=== PATIENT | female | born 1985 | race Caucasian/White ===

== ENCOUNTER 2024-04-04 11:12 | Outpatient (CLI) | payer OTHER, SELFPAY ==
[2024-04-04 18:23] LABS: Chlamydia DNA Amplified* NOT DETECTED (No Detected); GC DNA Amplified* NOT DETECTED (No Detected)
== END 2024-04-04 11:13 | disposition home or self-care (01) ==
PROVIDERS: Visit Provider Registered Nurse
DX: Z34.92 Encounter for supervision of normal pregnancy, unspecified, second trimester (principal); Z3A.16 16 weeks gestation of pregnancy
CPT/HCPCS: 81220; 86592; 86703; 86704; 86706; 86762; 86787; 86803; 86850; 86900; 86901; 87086; 87340; 87491; 87591

== ENCOUNTER 2024-07-01 14:18 | Outpatient (CLI) | payer OTHER, SELFPAY | END 2024-07-01 14:19 | disposition home or self-care (01) | LOC: NFLDREF 07-05 18:11 | PROVIDERS: Visit Provider Obstetrics & Gynecology | DX: Z34.93 Encounter for supervision of normal pregnancy, unspecified, third trimester (principal); Z3A.29 29 weeks gestation of pregnancy | CPT/HCPCS: 86592 ==

== ENCOUNTER 2024-07-09 08:10 | Outpatient (CLI) | payer OTHER, SELFPAY | END 2024-07-09 08:11 | disposition home or self-care (01) | LOC: NFLDREF 10:39 | PROVIDERS: Visit Provider Obstetrics & Gynecology | DX: R73.09 Other abnormal glucose (principal) | CPT/HCPCS: 82951; 82952 ==

== ENCOUNTER 2024-08-22 14:48 | Outpatient (CLI) | payer BC, SELFPAY ==
[2024-08-23 12:55] LABS: Strep B DNA Probe POSITIVE (Negative)
[2024-08-23 13:04] LABS: Strep B Susceptibility Needed? No
== END 2024-08-22 14:49 | disposition home or self-care (01) ==
LOC: NFLDREF 14:49
PROVIDERS: Visit Provider Obstetrics & Gynecology
DX: O09.523 Supervision of elderly multigravida, third trimester (principal); Z3A.36 36 weeks gestation of pregnancy
CPT/HCPCS: 87081; 87653

== ENCOUNTER 2024-09-12 11:17 | Outpatient (CLI) | payer BC, SELFPAY | END 2024-09-12 11:18 | disposition home or self-care (01) | LOC: US 11:18 | PROVIDERS: Visit Provider Obstetrics & Gynecology | DX: O36.5930 Maternal care for other known or suspected poor fetal growth, third trimester, not applicable or unspecified (principal); Z3A.39 39 weeks gestation of pregnancy | CPT/HCPCS: 76816; 76819 ==

== ENCOUNTER 2024-09-21 16:36 | Inpatient (IN) | payer BC, SELFPAY ==
[2024-09-21 16:47] VITALS: BP 122/72; PULSE 85; RESP 16; TEMP 36.7
[2024-09-21 16:51] VITALS: BMI 26.6
--- NOTE | 2024-09-21 16:54 | P.LDBA_ITS ---
Subjective History of Present Illness Date Seen: 09/21/24 Narrative: Patient is being admitted to Labor and Delivery for postdates IOL. She is a 38 year old woman at 40 weeks, 6 days gestation. Her full history and physical was dictated by Dr. Tracy on 08/28/2024. Please see this for details. Specific Issues/Plans G 1 H&P by CGM on 08/28/24 # Transfer of care at 16 weeks from [place]. Majority of records in [place]. New OB labs repeated. # Advanced maternal age NIPT: negative Recommend daily baby aspirin. To start now due to advanced maternal age and primip. Level 2 ultrasound normal as below # Heartburn. Recommended trial of Tums. If that does not helpful, recommend famotidine. Prescription submitted to her pharmacy. # Patient has a travel VISA which requires [place] to leave the country and re- enter every 90 days. They have concerns with traveling late in and with an infant. The patient will notify us if we need to provide any documentation regarding her or recommendations related to air travel at the end of . # Rubella nonimmune. Recommend vaccine. #Indeterminate Hep B surface antibody. No elevated risk of exposure. 2nd dose vaccine planned in third trimester # Elevated 1 hr GTT = 204. 3 hr GTT with 1 / 4 values elevated; no diabetes # GBS positive. No antibiotic allergies. Ampicillin during labor. Flu: 04/05/24 obtained at [facility] Covid: 04/05/24 obtained at [facility] RSV: 1/3 TDAP: done for immigration on 06/09/24 32 week VIOLETA-7 = 11, PHQ-9 = 9 NIPT: negative CF screen neg Ultrasound: 02/29/24: Gestational age 11 4/7 weeks. IUP. FHR 156bpm. Placenta posterior low. ANTOINE by dates: 09/15/24, ANTOINE by scan: 09/15/23 04/28/24: Level 2 US. posterior placenta without previa, 3 vessel cord, normal fluid, EFW 66%, AC 65%, normal anatomy. OB - Problem Based A/P Additional Plan (1) GBS (group B Streptococcus carrier), +RV culture, currently : Status: Acute (2) Post-dates : Status: Acute Plan Using aseptic technique, Cook catheter placed through the cervix. Intracervical in intravaginal balloons will be inflated up to 60 mL each, titrated to patient comfort. Begin low-dose Pitocin at 9:00 p.m.. Begin ampicillin for GBS prophylaxis now. Catheter will be removed after 12 hours. Delivery/Labor/Induction Plan Induction method: Intracervical balloon catheter OB Exam Physical Exam Vital signs: Pulse BP 85 122/72 09/21/24 16:47 09/21/24 16:47 Narrative: Physical exam: General: No acute distress Psych: Alert and oriented x3, full affect HEENT: Normocephalic, atraumatic Heart: Regular rate and rhythm, no murmur rub or gallop Lungs: Clear to auscultation bilaterally Abdomen: Soft, nontender, gravid, cephalic lie Lower extremities: Trace bilateral edema, no erythema Pelvic exam: Cervix 1.5, 70,-1, posterior, soft tracing:baseline 120 / accelerations present / no decelerations / moderate variability
[2024-09-21 17:54] LABS: Basophils Absolute Auto 0.01 K/uL (0.00-0.30); Basophils Percent Auto 0.1 % (0.0-3.0); Eosinophils Percent Auto 1.2 % (0.0-7.0); Hemoglobin* 12.9 gm/dL (12.0-16.0); Immature Granulocytes Abs Auto 0.02 K/uL (0.00-0.30); Immature Granulocytes Pct Auto 0.2 %; Lymphocytes Percent Auto 16.3 % (20-44); Mean Corpuscular HGB Conc 34 gm/dL (32-36); Mean Corpuscular Hemoglobin 31 pg (26-34); Mean Corpuscular Volume 92 fL (80-100); Monocytes Percent Auto 6.9 % (0.0-11.0); Neutrophils Percent Auto 75.3 % (42.0-72.0); Platelet Count* 169 K/uL (140-440); RDW Coefficient of Variation % 13.4 % (11.5-15.5); Red Blood Count 4.12 m/uL (4.00-5.20); White Blood Count* 8.46 K/uL (4.50-11.00)
[2024-09-21 17:57] LABS: Slide Review Reflex No
[2024-09-21] MEDS: LACTATED RINGERS 1000 ML 1,000 ML 125 ML IV (18:11)
[2024-09-21] MEDS: AMPICILLIN 2 GM in 0.9 % SODIUM CHLORIDE Mini-bag 100 ML IVPB (18:12)
[2024-09-21 19:40] VITALS: BP 110/56; PULSE 75; RESP 16; TEMP 37.1; O2SAT 97
[2024-09-21] MEDS: OXYTOCIN 30 unit/500 ML in NS 30 UNIT/500 ML BAG IVPB (21:00)
[2024-09-21] MEDS: AMPICILLIN 1 GM in 0.9 % SODIUM CHLORIDE Mini-bag 100 ML IVPB (21:03)
[2024-09-21] MEDS: hydrOXYzine pamoate 25 MG CAPSULE 100 MG PO (21:45)
[2024-09-21] MEDS: MORPHINE 10 MG/ML inj IM (21:45)
[2024-09-21 23:08] VITALS: BP 101/53; PULSE 67; RESP 16; TEMP 37.3
[2024-09-21 23:09] VITALS: PULSE 72; O2SAT 96
[2024-09-22] VITALS (90 sets, daily range): BP systolic 92–143; BP diastolic 50–70; PULSE 66–164; RESP 16–17; TEMP 36.7–37.3; O2SAT 83–100
[2024-09-22] MEDS: AMPICILLIN 1 GM in 0.9 % SODIUM CHLORIDE Mini-bag 100 ML IVPB ×2 (01:50→05:48)
[2024-09-22] MEDS: LACTATED RINGERS 1000 ML 1,000 ML 125 ML IV ×2 (02:03→07:19)
[2024-09-22] MEDS: ROPIVACAINE 0.2% 100 ml 100 ML 12 MG EPIDURAL (06:00)
[2024-09-22] MEDS: LIDOCAINE 2% (PF) 5 ML VIAL EPIDURAL (06:00)
--- NOTE | 2024-09-22 06:28 | PM.ANBPRC ---
[facility] Social History Narrative: From [place]. Living with in [place]. What is your current living situation?: I presently have a place to live Problems where you live: no known problems In the past 12 months, utilities in danger of being shut off: no In past 12 months, lack of transportation kept you from medical appts, meetings, work, or getting things needed for daily living: no In the past 12 mos, have been you worried that your food would run out before you had money to buy more?: never true In the past 12 mos, the food you bought just didn't last and you didn't have money to buy more?: never true Smoking Status: Never smoker How often does anyone, including family, friends and others, physically hurt you: never How often does anyone, including family, friends and others, insult or talk down to you: never How often does anyone, including family, friends and others, threaten you with harm: never How often does anyone, including family, friends and others, scream or curse at you: never Meds Home Medications and Allergies Home Medications ?Medication ?Instructions ?Recorded ?Confirmed ?Type PNV no.151-iron 27 mg-folic 800 1 cap PO DAILY 05/06/24 09/21/24 History mcg-omega3 260 xe-cqk-jjm-fish capsule ( Multi-DHA (with vitamin K)) aspirin 81 mg tablet,delayed 81 mg PO QDAY 05/06/24 09/21/24 History release Allergies Allergy/AdvReac Type Severity Reaction Status Date / Time No Known Drug Allergies Allergy Verified 09/17/24 09:38 Results Labs Labs: Laboratory Results - last 24 hr 09/21/24 17:46 WBC 8.46 RBC 4.12 Hgb 12.9 Hct 38.0 MCV 92 MCH 31 MCHC 34 RDW Coeff of Carlos 13.4 Plt Count 169 Neut % (Auto) 75.3 H Lymph % (Auto) 16.3 L Clay % (Auto) 6.9 Eos % (Auto) 1.2 Baso % (Auto) 0.1 Neut # (Auto) 6.40 Lymph # (Auto) 1.40 Clay # (Auto) 0.60 Eos # (Auto) 0.10 Baso # (Auto) 0.01 Abs Immat Gran (auto) 0.02 Imm/Tot Granulo (auto) 0.2 Blood Type O Positive Antibody Screen NEGATIVE Vital Signs Vital Signs: Last Vital Signs Temp 99.2 F 09/22/24 05:30 Pulse 102 H 09/22/24 06:27 Resp 16 09/22/24 03:24 BP 119/70 09/22/24 06:27 Pulse Ox 98 09/22/24 06:27 Weight: 69.8 kg Height: 162 cm Anesthesia Procedures Epidural Insertion Patient Location: OB Start Time: 05: Stop Time: 06:30 Start Date: 09/22/24 Stop Date: 09/22/24 Reason for Block: procedure for pain Performed By: Paula Guillaume Preanesthetic Checklist: IV checked, site marked, risks and benefits discussed, monitors and equipment checked, pre-op evaluation, timeout performed and anesthesia consent Prep: chlorhexidine gluconate Monitoring: blood pressure monitoring, continuous pulse oximetry and heart rate Approach: midline Vertebral Space: lumbar (1-5) Epidural Technique: LIBIA saline Needle Type: Tuohy needle Injection Technique: continuous catheter Needle gauge: 17 Needle Length (cm): 10 cm Needle Insertion Depth (cm): 7 Catheter Gauge: 19 Catheter Type: multi-orifice Catheter at skin depth (cm): 13 Test Dose Result: negative and lidocaine 1.5% with epinephrine 1 to 200,000
[2024-09-22] MEDS: PHENYLEPHRINE 100 MCG/ML SYRINGE IVP (06:56)
--- NOTE | 2024-09-22 07:44 | P.OBPN_ITS ---
Subjective Time Seen by Provider: 07:30 Date Seen: 09/22/24 Narrative: The patient is comfortable after her epidural. Had a cook catheter placed for cervical ripening last evening. SROM occurred at approximately 4 am. Contractions became much more intense at that time. Objective Vital Signs: Last Vital Signs Temp 98.4 F 09/22/24 07:17 Pulse 100 09/22/24 07:42 Resp 17 09/22/24 07:17 BP 121/70 09/22/24 07:42 Pulse Ox 96 09/22/24 07:22 Pelvic Exam Dilation (cm): 9.5 cm Effacement (%): 90 Station: +1 Comments: Exam per nurse while I was at the bedside (nurse had just placed woods) Contractions Monitor mode: External Contraction pattern: Regular Contraction intensity: Strong/Firm Pitocin Rate (mU/min): 7 Assessment Assessment: active labor Amniotic Membrane Status: SROM Status: Category ll Heart Rate Baseline: 140 Interior Design Director Variability: Moderate (6-25) Monitor Accelerations: Absent Monitor Decelerations: None Plan Plan: Continue current management. Anticipate vaginal delivery.
--- NOTE | 2024-09-22 11:30 | W.PM.OBVAGDE ---
OB Procedure Vag Delivery Mother Details Mother Details: The patient is a 38 year-old, 1, Para 0, admitted on 09/21/24 at 40 6/7 weeks gestation for cervical ripening and induction of labor secondary to postdates gestation. : 1 Para: 0 Weeks Gestation: 40.6 Admission Date: 09/21/24 Additional Details Amniotic Membrane Status: intact Amniotic Membrane Rupture Date: 09/22/24 Amniotic Membrane Rupture Time: 04:13 Amniotic Membrane Fluid Description: Clear Analgesia/Anesthesia Type: Epidural (at 0600) Waterbirth: No Pitcoin: Yes Intrapartal Events: Labor Induction Induction Method: Intracervical balloon catheter Delivery augmentation: pitocin Labor Onset: 04:13 Complete: 08:37 Pushin:47 Heart: heart tones during second stage were category 2, intermittent deep variables, good return and variability between. Delivery Details Delivery Date: 09/22/24 Delivery Time: 10:52 Route of delivery: Infant Gender: Female Infant Viability: Alive; Heart Rate Present Position at Delivery: OA Delivery Details: Delivered via spontaneous vaginal delivery. Infant was placed on maternal abdomen.? Cord was clamped and cut after a 30-60 second delay. Nose and mouth were bulb suctioned.? weight pending. 1 Minute Interval Total Score: 7 5 Minute Interval Total Score: 8 Additional Details Shoulder Dystocia: No Placenta Delivery Time: 10:56 Placental Delivery Description: Spontaneous Delivery repair: Vicryl and Chromic Procedure Done: Global Blood Loss: 400 Laceration: Perineal - 2nd Degree (with deep 2nd degree vaginal extension to right of midline) Episiotomy Description: None Blood Loss Measurement Type: QBL Bakri Used: No Sponge/Need Count Correct: Yes Cord Vessel Description: 3 Vessels Event Summary Status: Mother and infant were stable after delivery. Disposition: floor
[2024-09-22] MEDS: IBUPROFEN 600 MG TABLET PO ×2 (15:23→21:26)
[2024-09-22] MEDS: ACETAMINOPHEN 500 MG TABLET 1000 MG PO (17:19)
[2024-09-23] VITALS: BP 100/64; PULSE 101; RESP 16; TEMP 36.8; O2SAT 96
[2024-09-23] MEDS: ACETAMINOPHEN 500 MG TABLET 1000 MG PO ×4 (00:58→21:47)
[2024-09-23 04:43] VITALS: BP 115/81; PULSE 90; RESP 12; TEMP 36.8; O2SAT 98
[2024-09-23] MEDS: IBUPROFEN 600 MG TABLET PO ×3 (05:37→19:29)
[2024-09-23 07:15] LABS: Hemoglobin* 10.4 gm/dL (12.0-16.0)
--- NOTE | 2024-09-23 07:39 | PM.OBPNVD1 ---
OB - PN:Subj Subjective Date Seen: 09/23/24 Narrative: Aurora is a 38 y.o. who was admitted to L & D for induction of labor.? She had an uncomplicated NVD.? ?? The patient feels well.? The pain is well controlled with current medications.? She has no new complaints.? She is breast feeding and reports things are going ok. She would like to work on today with support from nursing.? the patient has done well.? Vitals have been stable.? She has remained afebrile.? Has a good appetite, is tolerating a general diet.? She is voiding without difficulty.? She is passing gas and has not had a bowel movement.? She is ambulating and denies any dizziness.? Has Small amount of rubra lochia.? OB - PN: Obj Exam Physical Exam: Vital signs: Temp Pulse Resp BP Pulse Ox O2 Del Method 98.2 F 90 12 115/81 98 Room Air 09/23/24 04:43 09/23/24 04:43 09/23/24 04:43 09/23/24 04:43 09/23/24 04:43 09/23/24 04:43 Narrative: GENERAL APPEARANCE:? normal affect, alert, no distress? MOOD:? appropriate? HEENT: normocephalic, neck supple, full ROM? CHEST:? Symmetrical chest wall movement.? Normal respiratory effort.? Clear to auscultation ? HEART:? regular rate and rhythm? ABDOMEN:? soft, non-tender. Uterine fundus is firm, at Umbilicus, Midline and is appropriate for the stage of recovery.? Bowel sounds present.? PERINEUM:? mild edema of the perineum, there is a 2nd degree laceration that is healing well.? EXTREMITIES:? normal and no edema? OB - PN: Obj Data Labs Labs: Laboratory Results - last 24 hr 09/23/24 06:16 Hgb 10.4 L OB - PN: A/P Delivery Assessment and Plan (1) care and examination of lactating mother: Status: Acute (2) GBS (group B Streptococcus carrier), +RV culture, currently : Status: Acute (3) Post-dates : Status: Acute (4) (normal spontaneous vaginal delivery): Status: Acute Plan day: 1 Plan: routine care Comments: G 1 P 1 status post uncomplicated NVD??? 1.? Continue route PP cares? 2.? .? May see if desired? 3.? Anticipate discharge home tomorrow?
[2024-09-23] MEDS: DOCUSATE SODIUM 100 MG CAPSULE PO (07:45)
[2024-09-23 08:02] VITALS: BP 102/70; PULSE 81; RESP 18; TEMP 36.6; O2SAT 97
--- NOTE | 2024-09-23 11:55 | PM.ANPOST ---
Post Anesthesia Note Post Anesthesia Note Patient seen: Inpatient Respiratory Status: adequate Cardiovascular Status: adequate Mental Status: baseline Pain: adequate Temp: baseline Anesthetic awareness: N/A Complications: none Follow care: none
[2024-09-23 15:20] VITALS: BP 111/67; PULSE 84; RESP 18; TEMP 36.7; O2SAT 97
[2024-09-23] MEDS: MEASLES,MUMPS,RUBELLA VACC/PF 1 DOSE INJ 1 EACH SUBCUT (16:13)
[2024-09-23 23:39] VITALS: BP 105/67; PULSE 82; RESP 12; TEMP 36.9; O2SAT 96
[2024-09-24 01:55] LABS: Rapid Plasma Reagin (RPR) Non Reactive (Non Reactive)
[2024-09-24] MEDS: ACETAMINOPHEN 500 MG TABLET 1000 MG PO ×2 (05:10→12:37)
--- NOTE | 2024-09-24 07:35 | PM.OBDSVD1 ---
DS: Providers Provider Date Seen: 09/24/24 Date of admission: 09/21/24 16:36 Primary care physician: Not a Local Provider Admitting Clinician: Argelia Crisostomo MD Attending Physician on discharge: Argelia Crisostomo MD DS: Diagnosis Discharge Diagnosis (1) care and examination of lactating mother: Status: Acute (2) Lactating mother: Status: Acute Exam Narrative: Exam Narrative: GENERAL APPEARANCE:? normal affect, alert, no distress? MOOD:? appropriate? CHEST:? clear to auscultation and percussion? HEART:? regular rate and rhythm? ABDOMEN:? soft, non-tender the uterine fundus is U/1 and is appropriate for the stage of recovery.? PERINEUM:? mild edema of the perineum, there is a 2nd degree perineal laceration that is healing well.? EXTREMITIES:? normal and no edema? Const: Vital Signs, click to edit/add: Vital Signs - 24 hr 09/23/24 08:02 09/23/24 15:20 09/23/24 23:39 Temperature 98 F 98.1 F 98.5 F Pulse Rate [Left] 81 84 82 Respiratory Rate 18 18 12 Blood Pressure [Le ft Arm] 102/70 111/67 105/67 Pulse Oximetry 97 97 96 Oxygen Delivery Me thod Room Air Room Air Room Air Documenting provider has reviewed patient's vital signs: yes OB - DS: Summary Hospital Course Hospital Course: Aurora is a 38 year old G 1 P 1 at 41.0 weeks gestation that was admitted to the Center on 09/21/24 for postdates induction. She had an uncomplicated vaginal delivery. She delivered a viable female infant. She is breast feeding. Her nipples are sore from babies latch so she is working on latch with nursing staff. Encouraged visit as well as ECFE classes the patient has done well. Her pain is well controlled with current medications.? She has no new complaints.? Urinary output is adequate and she is voiding without difficulty.? Has a good appetite, is tolerating a general diet, is passing flatus, and has not had a bowel movement.? Has scant amount of rubra lochia.? She is ambulating well. She is unsure what she is planning for contraction but has used condoms successfully in the past. Peripartum Data delivery method: Vaginal Laceration description: Perineal - 2nd Degree Episiotomy description: None complications: none [place] Infant Gender: Female Infant Discharge Plan: Home Status at Discharge Functional status at discharge: independent ambulation Overall status at discharge: patient is progressing back to baseline Time Spent with Patient Time attestation: Total time spent providing and/or coordinating discharge services: Discharge Plan Discharge Disposition: Home, Self-Care Date of Admission: 09/21/24 16:36 Attending Provider on Discharge: Lisbet Bravo Consulting Providers: Heather Whittaker Primary Care Provider: Provider,Not a Local Condition: Stable Anticipated Discharge Date/Time: 09/24/24 10:00 Discharge Medications: New docusate sodium 100 mg Capsule 100 mg PO DAILY Qty: 90 0RF Rx Instructions: Take 1-2 tablets daily as needed for constipation. ibuprofen 600 mg Tablet 600 mg PO Q6H PRNQty: 60 0RF Continued Multi-DHA(with vit K) 27 mg iron-800 mcg-260 mg capsule 1 cap PO DAILY Discontinued aspirin 81 mg tablet,delayed release (DR/EC) 81 mg PO QDAY Discharge Orders: Discharge Order (Routine); Ordered 09/24/24 Ordered By: Lisbet Bravo Patient Education: OB Vaginal/Breast Feeding Additional Instructions: Discharge instructions were reviewed with the patient including signs and symptoms of infection and home going medications.? Lifting Restrictions: 20 pounds for 6? weeks? ?? Do not drive while taking narcotic pain meds.? Off Work or School for 6 weeks.? ?? Symptoms to report to doctor:? -Bleeding that saturates more than one pad per hour? -Passing clots larger than the size of a golf ball? -Pain not relieved by prescribed medication? -Fever above 100.4 degrees Fahrenheit? -A foul vaginal odor? -Difficulty in emotions, mood and functions? -Thoughts of hurting yourself and/or ? -Painful, reddened area in your breast? -Any drainage, redness or tenderness in your IV/epidural site? -Severe headache that doesn't improve after taking medications? -Changes in vision, including temporary loss of vision, blurred vision, and/or light sensitivity? -Upper abdominal pain (usually under ribs on the right side)? -Decrease in urination or painful, frequent urinating? -Chest pain? -Shortness of breath? -Tenderness or pain with redness and/swelling in the calf(s) of your leg? ?? Follow Up in clinic in 2 and 6 weeks.? ?? consultation services are available to all mothers and babies for the first year after delivery.? To make an appointment, please call [phone].? Activity Level: Activity as Tolerated Discharge Diet: Regular Follow Up Appointments: Provider,Not a Local [Primary Care Provider] - [facility] [Provider Group] Forms: MyHealth Info Instructions
[2024-09-24 09:03] VITALS: BP 113/70; PULSE 76; RESP 16; TEMP 37.2; O2SAT 97
[2024-09-24] MEDS: DOCUSATE SODIUM 100 MG CAPSULE PO (09:18)
[2024-09-24] MEDS: IBUPROFEN 600 MG TABLET PO ×2 (09:18→16:00)
== END 2024-09-24 16:30 | disposition home or self-care (01) | DRG 560 ==
PROVIDERS: Obstetrics & Gynecology; Admitting Provider Obstetrics & Gynecology; Visit Provider Obstetrics & Gynecology
DX: O48.0 Post-term pregnancy (principal); Z3A.40 40 weeks gestation of pregnancy; Z37.0 Single live birth; O99.824 Streptococcus B carrier state complicating childbirth; Z78.9 Other specified health status; O09.513 Supervision of elderly primigravida, third trimester; O76 Abnormality in fetal heart rate and rhythm complicating labor and delivery
CPT/HCPCS: 01967; 36415; 59200; 85018; 85025; 86592; 86850; 86900; 86901; A9270; C1726; J0290; J2270; J2371; J2795; J7120

== ENCOUNTER 2024-10-09 13:22 | Outpatient (CLI) | payer BC, SELFPAY ==
--- NOTE | 2024-10-09 15:09 | W.PM.LAC.MC ---
Consult Note - Mom Date of Visit Date of visit: 10/09/24 Reason for consultation: Assistance Needed and Breast/Nipple Issue Visit Code: Visit Patient's Information Phone number: [phone] : 1 Para: 1 Allergies No Known Drug Allergies Allergy (Verified 10/07/24 14:45) Mother's Medical History: Medical History (Updated 09/26/24 @ 16:20 by Zac Suarez CNM) Post-dates ?O48.0 - Post-term (ICD-10) GBS (group B Streptococcus carrier), +RV culture, currently ?O99.820 - Streptococcus B carrier state complicating (ICD-10) Advanced maternal age (AMA) in Work Plans: not sure yet, staying home for now Delivery Information Delivery type: Vaginal Gestational Age: 40+6 Gestational Weight For Age: AGA Weight: 3.355 kg Discharge Weight: 3.114 kg Percentage weight loss: 7.2 Baby's Information Baby's Age at Visit: 17 days Baby's Provider or Clinic: [facility] Jaundice: No Past Experience Past Experience: No Current Frequency of Day Feedings: eery 2-3 hrs, sometimes 3.5 hours Frequency of Night Feedings: every 3-4 hours Both Breasts: Yes Suck: strong Latch: sometimes painful Length of Time: 10-15 min ea breast most feeding Goals: 1 year Pumping Pumping: No Supplementing EBM Supplement: No Formula Supplement: No Baby Elimination Number of Wet Diapers a Day: 6+/day Number of BM a Day: 6+/day; yellow, seedy Breast/Nipple Condition Breast Information: Breasts are symmetrical with rounded lower quadrants, intramammary distance is less than 1.5 inches. No erythema. Nipples are supple, everted prior to feeding. No open cracks, blisters, bleeding. Sore with the initial latch but getting better per mom. Mom c/o some right outer quadrant breast pain a few days ago that is now gone; she had no redness or fevers. Feels full today, but does soften and less pain after nursing. Breast Shape: Round Engorgement: No Maternal Nipple Condition - Left: Common Nipple Maternal Nipple Condition - Right: Common Nipple Sore Nipples: Yes Interventions for Sore Nipples: Lansinoh/Nipple Cream and Soothies/Hydrogel Pads Baby Assessment Skin: Normal Tongue/frenulum: Normal/elastic and Restricted mid-range (slight, but can elevate tongue and keep tight seal/waiter/waitress economy class with feedings) Palate: Average Lips: Relaxed and Symmetrical Jaw Alignment: Symmetrical Mucosa: [place], moist Onsite Observation Pre-Feed weight: 3.318 kg (up 29gm in 2 days from clinic visit) Post-Feed weight: 3.364 kg Milk Transferred (mL): 46 (20 min on L breast, 10 min on R breast) Position: Cross cradle Attachment/latch-on achieved: Easily Suck pattern: Suck burst and normal rest Swallow: Audible, consistent and Gulping Behavior following feed: Alert, content Pre-Nursing Left Nipple: Within Normal Limits Pre-Nursing Right Nipple: Within Normal Limits Post-Nursing Left Nipple: Within Normal Limits Post-Nursing Right Nipple: Within Normal Limits Assessments/Interventions Assessments/Interventions: observation: mandie latches well to each breast, does well with a wide open mouth prior to latching. Once on the breast, she does shift around some and mom relatches her for comfort. on mom's right breast, milk flows much faster, and mandie does come off with milk spraying in her face. Mom allows the letdown to pass and then relatches baby. Mom's nipples rounded bilaterally when baby done nursing. Education provided: Early feeding cues to maximize timing of latching, Asymmetric latch technique for wide/deep latch to increase milk, Transfer for baby and increase comfort for mom, Supply/demand nature of milk supply (recom allow baby to cluster feed if she desires in the evening as mom is describing some hunger cues at times and not sure if she should try and feed her or not), Need for frequent stimulation/milk removal, Sore nipple treatment options, Hand expression, Alternative feeding methods (SNS, cup, finger feeding, bottling) (discussed adding a bottle at 3-4 weeks IF parents want this as a feeding option) and Pumping for milk management Handouts Provided: [place] stomach size Paced bottle feeding Breastmilk storage guidelines Feeding Plan: Continue feeding every 2-3 hours during the day, watch for feeding cues Ok to cluster feed in the evening if babe acts hungry; this is normal for a breastfed baby No longer than 3 hours at night since not back to weight yet Follow-Up Suggested follow up: Appointment in 1 week (for weight check for baby and ) Time Spent Time spent with patient (min): 90 (reviewing EMR and face to face with mom and baby) Meds Home Medications and Allergies Home Medications ?Medication ?Instructions ?Recorded ?Confirmed ?Type PNV no.151-iron 27 mg-folic 800 1 cap PO DAILY 05/06/24 10/07/24 History mcg-omega3 260 uz-yzq-zfx-fish capsule ( Multi-DHA (with vitamin K)) Allergies Allergy/AdvReac Type Severity Reaction Status Date / Time No Known Drug Allergies Allergy Verified 10/07/24 14:45
== END 2024-10-09 13:23 | disposition home or self-care (01) ==
LOC: OB LAC 13:23
PROVIDERS: Visit Provider Obstetrics & Gynecology
DX: Z39.1 Encounter for care and examination of lactating mother (principal)
CPT/HCPCS: G0463